=== PATIENT | female | born 1975 ===

== ENCOUNTER 2018-09-18 16:13 | Outpatient (CLI) | payer BC | END 2018-09-18 16:14 | disposition home or self-care (01) | LOC: C.MAMMO 16:13 | DX: Z12.31 Encounter for screening mammogram for malignant neoplasm of breast (principal) ==

== ENCOUNTER 2018-11-09 09:11 | Outpatient (CLI) | payer BC | END 2018-11-09 09:12 | disposition home or self-care (01) | LOC: C.MAMMO 09:11 | DX: R92.8 Other abnormal and inconclusive findings on diagnostic imaging of breast (principal) ==

== ENCOUNTER 2018-11-17 08:18 | Outpatient (CLI) | payer BC | END 2018-11-17 08:19 | disposition home or self-care (01) | LOC: C.SPRAD 08:18 ==